=== PATIENT | female | born 1970 | race Caucasian/White ===

== ENCOUNTER 2019-01-07 12:04 | Outpatient (CLI) | payer BC ==
--- NOTE | 2019-01-07 20:52 | RAD ---
CHEST TWO VIEWS: Date: 01-07-19 Comparison: 04-07-09 FINDINGS: The heart is normal in size and the lungs are clear. No pulmonary nodules, fibrotic change, or pleura l effusion was seen. There is no vascular congestion or edema. The mediastinum is unremarkable and th e trachea is midline. Very minor spurring is seen in the thoracic spine. IMPRESSION: No significant findings. POS: HOME
== END 2019-01-07 12:05 | disposition home or self-care (01) ==
LOC: BURRAD 12:04
PROVIDERS: ATTEND Internal Medicine Rheumatology
DX: M06.00 Rheumatoid arthritis without rheumatoid factor, unspecified site (principal)
CPT/HCPCS: 71046